=== PATIENT | female | born 1970 | race Caucasian/White ===

== ENCOUNTER 2016-07-29 16:14 | Emergency (ER) | payer OTHER ==
[2016-07-29 16:20] VITALS: RESP 16; TEMP 97.5
--- NOTE | 2016-07-29 16:23 | EDPHY ---
H & P Stated Complaint: left leg cramping x1 week Time Seen by Provider: 07/29/16 16:17 HPI/ROS: CHIEF COMPLAINT: leg pain HISTORY OF PRESENT ILLNESS: 45-year-old female presents emergency department complaining of left leg cramping x 10-14 days. Patient reports she 1st noticed her leg hurting upper lateral thigh a couple of days, felt like a charley horse , this subsided for a day or 2 and she then reports she has had pain in her catheterization and inner thigh for the past 7-10 days that is worse with movement. Patient reports today she was going up the stairs at work and felt like her left leg was about to give out. Patient became concerned after she told her doctor about this pain, her mother was in the hospital 3 weeks ago and she states she sat in her room for 2 days without getting out of the chair more than a few times and she slept in a recliner that was uncomfortable. Her doctor suggested she come here to rule out a blood clot. Patient reports yesterday she had 2 episodes of right-sided sharp chest pain that lasted for a 2nd or 2 and reports she had a few episodes feeling like she could not take a deep breath last week. Patient at 1st attributed this to stress and anxiety due to increased family stressors. Patient denies fevers, chills, nausea or vomiting, no history of blood clots, no recent travel, no history of cancer. Patient denies loss of control of her bowel or bladder, no saddle anesthesias, no previous back problems. Patient denies chest pain or shortness of breath at this time. REVIEW OF SYSTEMS: A comprehensive 10 point review of systems is otherwise negative aside from elements mentioned in the history of present illness. Source: Patient Exam Limitations: No limitations - Personal History LMP (Females 10-55): Hysterectomy Current Tetanus/Diphtheria Vaccine: Yes Current Tetanus Diphtheria and Acellular Pertussis (TDAP): Yes Tetanus Vaccine Date: 2013 - Medical/Surgical History Hx Asthma: No Hx Chronic Respiratory Disease: No Hx Diabetes: No Hx Cardiac Disease: No Hx Renal Disease: No Hx Cirrhosis: No Hx Alcoholism: No Hx HIV/AIDS: No Hx Splenectomy or Spleen Trauma: No Other PMH: hysterectomy 2001, - Social History Smoking Status: Never smoked - Physical Exam Exam: Physical Exam Gen: Alert and Oriented, NAD HEENT: PERRL, moist mucous membranes NECK: no meningismus CV: regular rate and regular rhythm PULM: CTAB, no wheezes ABDOMEN: soft, non tender to palpation, BS present BACK: No CVA tenderness NEURO: Neurologically grossly intact EXTREMITIES: normal appearing, left leg with no swelling, tenderness to palpation to posterior calf, 2+ pedal pulses, sensation intact to light touch, 2 /4 deep tendon reflexes patellar and Achilles, negative straight leg raise bilaterally SKIN: no rash or break in skin on exposed skin PSYCH: answers questions appropriately. Constitutional: Initial Vital Signs Temperature (C) 36.4 C 07/29/16 16:16 Heart Rate 75 07/29/16 16:16 Respiratory Rate 16 07/29/16 16:16 Blood Pressure 138/81 H 07/29/16 16:16 O2 Sat (%) 96 07/29/16 16:16 O2 Delivery Mode Room Air Allergies/Adverse Reactions: amoxicillin trihydrate [From Augmentin] Allergy (Severe, Verified 07/29/16 16:21 ) Hives fentanyl Allergy (Severe, Verified 07/29/16 16:21) Hives potassium clavulanate [From Augmentin] Allergy (Severe, Verified 07/29/16 16:21) Hives vancomycin Allergy (Severe, Verified 07/29/16 16:21) Dyspnea gonadorelin HCl [From Factrel] Allergy (Verified 07/29/16 16:21) Home Medications: Medication Instructions Recorded Hydrocodone/APAP 5/325 [[place] 1 tab PO Q4H PRN #7 tab 07/29/16 5/325] Medical Decision Making ED Course/Re-evaluation: IV established, D-dimer obtained, left lower extremity ultrasound obtained an EKG. EKG shows normal sinus rhythm no ST or T-wave abnormalities. D-dimer is normal, ultrasound of left lower extremity shows no evidence of DVT. Patient will be discharged with instructions on muscle strain. She has been given return precautions for any fevers loss of control of her bowel or bladder, saddle anesthesias, any other questions or concerns. Differential Diagnosis: Diagnosis considered but not limited to DVT, muscle strain, PE, anxiety, lumbar radiculitis - Data Points Laboratory Results: 07/29/16 17:00 D-Dimer < 0.27 ug/mLFEU (0.00-0.50) Departure - Departure Disposition: Home, Routine, Self-Care Clinical Impression: Left leg pain Condition: Good Instructions: Muscle Strain (ED) Additional Instructions: Rest, ice or heat whichever feels better, elevate, take 600mg of ibuprofen every 8 hours with food for 3-5 days as needed for pain. Take [place] for severe pain. Return to the emergency department for any numbness, tingling, discoloration of you limb or other concerns. Referrals: Ben Mc MD [Primary Care Provider] - As per Instructions Prescriptions: Hydrocodone/APAP 5/325 [[place] 5/325] 1 tab PO Q4H PRN #7 tab PRN Reason: Pain, Moderate
--- NOTE | 2016-07-29 17:11 | US ---
Ultrasound Venous Duplex/Doppler left Leg History: Left leg pain. Findings: Ultrasound venous duplex and Doppler imaging of the common femoral vein, femoral vein, pop liteal vein, calf veins, greater saphenous vein origin, and contralateral common femoral vein demonst rates normal compressibility, color flow, and Doppler flow without deep venous thrombosis. Impression: No deep venous thrombosis left leg. Findings and recommendations discussed with Emergency Department physician, Kristie Paz PA-C, at 1 705 hours today. Final report concurs with initial preliminary interpretation.
--- NOTE | 2016-07-29 17:32 | CPEKG ---
Heart Rate: 72 RR Interval: 833 P-R Interval: 164 QRSD Interval: 76 QT Interval: 420 QTC Interval: 460 P [place]: 42 QRS [place]: -10 T Wave [place]: 22 EKG Severity - NORMAL ECG - EKG Impression: SINUS RHYTHM Electronically Signed By: Harper Lynn 29-Jul-2016 21:34:45
[2016-07-29] MEDS ORDERED: KETOROLAC 15 MG/1 ML SDV IVP ONE (17:40)
[2016-07-29 17:47] VITALS: BP 133/85; PULSE 70; O2SAT 95
== END 2016-07-29 18:05 | disposition home or self-care (01) ==
DX: M79.605 Pain in left leg (principal)
CPT/HCPCS: 96374; J1885

== ENCOUNTER → 2018-12-28 | Outpatient (CLI) | payer OTHER | LOC: FIMAGING 14:44 ==